=== PATIENT | female | born 1990 | race Two or more races ===

== ENCOUNTER 2024-08-15 13:31 | Emergency (ER) | payer MEDICAID, SELFPAY ==
[2024-08-15 13:50] VITALS: BP 125/86; PULSE 88; RESP 18; TEMP 36.6; O2SAT 99; BMI 25.9
--- NOTE | 2024-08-15 14:03 | EDNOTE_ITS ---
Upper Extremity Injury RME/HPI General Chief Complaint: Hand/Wrist Problems Stated Complaint: INJURY TO RIGHT HAND, LACERATION Time Seen by Provider: 08/15/24 13:53 Arrival date/time: 08/15/24 13:31 RME / HPI RME / HPI narrative: 33-year-old female patient with no significant medical history, came in for evaluation regarding right hand injury, injury sustained about few minutes prior to ER visit, while opening a can resulting into 3 cm gaping laceration, severity mild. Able to bend and extend the fingers without any difficulty. Denies any anesthesia or hypoesthesia distal to the laceration. Related Data Allergies Allergy/AdvReac Type Severity Reaction Status Date / Time No Known Allergies Allergy Verified 08/15/24 13:34 Review of Systems Review of Systems Narrative Review of Systems: Review of system reviewed and within normal limits except mentioned in HPI ED Exam Narrative Physical exam: VITAL SIGNS: Reviewed. GENERAL APPEARANCE: Alert and interactive, follows commands, no acute distress, HEAD AND FACE: Non-traumatic. ENT: PERRL, pink conjunctivitis, eyelid no trauma, Mucous membrane moist. RECTAL: Deferred. GENITAL: Deferred. NEUROLOGICAL: Gross motor function intact sensory function intact, Appropriate for age. MUSCULOSKELETAL: low back nontender, full range of motion. EXTREMITIES: 3 cm gaping laceration to the right hand palmar aspect full range of motion of the fingers and wrist no hypoesthesia or anesthesia distal to the laceration. SKIN: Color pink, dry, no rash, no lacerations, no abrasions, no contusions. LYMPHATICS: Deferred. Course Quality Measures none Orders Category Date Time Status Ibuprofen Tab [Motrin Tab] Med 08/15/24 14:01 Discontinued 600 mg PO X1 ONE Tet,Diphth,Pertuss(Acell)-Tdap [Boostrix Vacc] Med 08/15/24 14:01 Discontinued 0.5 ml IMI .ONCE ONE Vital Signs Vital signs: Vital Signs Temperature 98 F 08/15/24 13:50 Pulse Rate 88 08/15/24 13:50 Respiratory Rate 18 08/15/24 13:50 Blood Pressure 125/86 H 08/15/24 13:50 Pulse Oximetry (%) 99 08/15/24 13:50 Oxygen Delivery Method Room Air 08/15/24 13:50 Extremity Injury MDM Narrative [facility] Narrative:: Wound cleansed with skin cleanser, bina applied x 2 without any difficulty. Patient is tolerating the procedure well. Sterile dressing applied patient received Boostrix in the ED. Patient data External records reviewed:: None Clinical information provided by:: patient Social determinants that could affect healthcare access:: none Patient has the following chronic illnesses:: None How is presenting disease/condition affected by chronic disease/condition?: no chronic disease Evaluation data The following diagnostics were reviewed and interpreted by me:: other (specify) (None) Lab and/or radiology exams considered but not ordered:: None Interpretation Summary: None Medications / Prescriptions Medications or Prescriptions considered but not ordered:: Head laceration, avulsion, contusion Medication administrations:: Medication Administration History Discontinued Medications Diphtheria/Tetanus/Acell Pertussis (Diphth,Pertuss(Acell),Tet Vac 0.5 Ml Vial) 0.5 ml IMi .ONCE ONE Stop: 08/15/24 14:02 Ibuprofen (Ibuprofen Tab 600 Mg Tablet) 600 mg PO X1 ONE Stop: 08/15/24 14:02 Boostrix and Motrin Consultations Consultation(s) initiated? (list below): No Diagnosis Upper Extremity Injury Differential Diagnosis: other (Hand laceration, avulsion, contusion) Most likely diagnosis given after review of the tests above:: right tongue laceration Admission Indicated Admission indicated?: not indicated Explain why admission is indicated or not indicated:: Stable Admission Request Was there a request for admission?: No Disposition Plan Disposition Plan: Discharge Discharge Attestation Discharge Attestation: The patient was given an opportunity to ask questions and understood the discharge instructions. Discharge instructions specifically effects, indications for sooner follow up or return to the emergency department, and the expected course of current diagnosis. Patient condition: Stable Discharge Plan Plan Patient Disposition: HOME (Self Care) Disposition Comment: Stable Problem List Clinical Impression: Hand laceration Patient/Caregiver Discharge Instructions Discharge Activity: activity as tolerated Education Materials: ED Laceration, Hand: All Closures Additional Instructions: Thank you for the opportunity for serving you today. You are stable for discharged . You are advised to: Follow-up with your PCP in 1 to 2 days Return to ED for worsening of symptoms Increase oral fluids Daily dressing with Neosporin as needed For removal of bina in 7 days You may take [id number] Tylenol Motrin as needed for pain Print Language: Czech Stand Alone Forms: Marleen Award Info., Patient Portal Info Letter PA/FREIGHT BROKER Supervising Physician PA/FREIGHT BROKER Supervising Physician: MD Kimmie
[2024-08-15] MEDS: DIPHTH,PERTUSS(ACELL),TET VAC 0.5 ML VIAL IMi (14:07)
[2024-08-15] MEDS: IBUPROFEN TAB 600 MG TABLET PO (14:08)
== END 2024-08-15 15:00 | disposition home or self-care (01) ==
PROVIDERS: Emergency Provider Emergency Medicine
DX: S61.411A Laceration without foreign body of right hand, initial encounter (principal); W26.8XXA Contact with other sharp object(s), not elsewhere classified, initial encounter; Z23 Encounter for immunization
CPT/HCPCS: 12002; 90471; 90715; 99283; A9270

== ENCOUNTER 2024-09-12 14:10 | Emergency (ER) | payer MEDICAID, SELFPAY ==
[2024-09-12 14:11] VITALS: BMI 28.1
[2024-09-12 14:22] VITALS: BP 134/88; PULSE 68; RESP 18; TEMP 37; O2SAT 97
--- NOTE | 2024-09-12 14:30 | XR_ITS ---
Examination: CT abdomen and pelvis without contrast. Coronal 3-D reconstructions. Sagittal 2-D reconstructions. Date and time of exam:September 12, 2024 1610 hrs. Indications: Onset right abdominal pain beginning 2 weeks ago. CTDI: vol (mGy): 7.24 DLP: (mGycm): 701 Technique: Axial images of the abdomen have been obtained, 3 mm slice thickness Intravenous contrast material has not been administered. Low dose protocols were performed. One or more of the following dose reduction techniques were used; automated exposure control, adjustment of the mA and/or KV according to patient size, use of iterative reconstruction technique. Findings: No focal liver or splenic lesions Contracted gallbladder. No pancreatic mass. Aorta normal size. No renal calculi, no hydronephrosis. Normal appendix. 5 mm umbilical hernia containing fat. No bowel obstruction. Retroverted uterus with no uterine or adnexal mass Urinary bladder wall thickening up to 6 mm The osseous structures are intact Impression: Normal appendix Mild cystitis pattern.
[2024-09-12 15:20] LABS: Collection Type, Urine Clean Catch
[2024-09-12 15:25] LABS: Basophils % (Auto) 1 % (0-2.5); Eosinophils # (Auto) 0.1 Thou/mm3 (0.0-0.5); Eosinophils % (Auto) 1 % (0-10); Hematocrit 42.6 % (36.0-46.0); Hemoglobin 14.2 g/dL (12.0-16.0); Immature Granulocytes % (Auto) 0 % (0-0); Immature Granulocytes Auto 0.01 Thou/mm3 (0.00-0.00); Lymphocytes % (Auto) 37 % (10-50); Mean Corpuscular HGB Conc 33.3 g/dl (31.0-37.0); Mean Corpuscular Hemoglobin 28.6 pg (25.0-35.0); Mean Corpuscular Volume 86 fL (80-100); Monocytes # (Auto) 0.6 Thou/mm3 (0.0-0.8); Monocytes % (Auto) 7 % (0-12); Neutrophils # (Auto) 4.4 Thou/mm3 (1.8-7.7); Neutrophils % (Auto) 54 % (37-80); Nucleated Red Blood Cell % 0 /100 WBC (0); Platelet Count 372 Thou/mm3 (140-440); Red Blood Count 4.96 Miln/mm3 (4.00-5.20)
[2024-09-12 15:28] LABS: Bacteria,Urine Rare; Bilirubin,Urine Negative (Negative); Blood,Urine Negative (Negative); Clarity,Urine Clear (Clear/Hazy); Color,Urine Lt-Yellow (Lt Yel-Yel); Culture Indicated,Urine Not Indicated; Glucose, Urine Negative (Negative); Ketones,Urine Negative (Negative); Leukocyte Esterase,Urine Negative (Negative); Nitrite,Urine Negative (Negative); PH,Urine 6.5 (5.0-7.0); Protein,Urine Negative (Neg - Trace); RBC,Urine 1 /hpf (0-3); Specific Gravity,Urine 1.014 (1.001-1.035); Squamous Epithelial Cell,Urine 5 /hpf (0-5); Urobilinogen,Urine Negative mg/dL (0.0-1.0); WBC,Urine 1 /hpf (0-5)
[2024-09-12 15:38] LABS: HCG Qualitative,Urine Negative
[2024-09-12 15:46] LABS: Alanine Aminotransferase 21 U/L (10-49); Albumin, Serum 5.2 gm/dL (3.5-5.0); Albumin/Globulin Ratio 1.8 (1.2-2.2); Alkaline Phosphatase 98 U/L (46-116); Anion Gap 8 (7-16); Aspartate Amino Transferase 19 U/L (0-34); BUN/Creatinine Ratio 19 Ratio (12-20); Bilirubin,Total 0.5 mg/dL (0.3-1.2); Blood Urea Nitrogen 13 mg/dL (9-23); Calcium 9.6 mg/dL (8.3-10.6); Calcium (Corrected) 9.6 mg/dL (8.5-10.1); Carbon Dioxide 26.6 mMol/L (20.0-31.0); Chloride 104 mMol/L (98-107); Creatinine (Component) 0.7 mg/dL (0.6-1.3); Estimated Creatinine Clearance 110.8 mL/min (>60); Globulin 2.9 gm/dL (2.3-3.5); Glucose 93 mg/dL (74-106); Lipase 41 U/L (12-53); Osmolality,Calculated 277 (275-295); Potassium 4.4 mMol/L (3.4-5.1); Sodium 139 mMol/L (136-145); Total Protein 8.1 gm/dL (5.7-8.2); eGFR > 60 See Note
[2024-09-12 16:49] VITALS: BP 127/76; PULSE 83; RESP 18; TEMP 37.2; O2SAT 100
--- NOTE | 2024-09-12 17:28 | EDNOTE_ITS ---
<Statement entered by Paz Keen MD - 09/13/24 09:15> As co-signing physician, I was present and available for consult prn. I concur with the plan and care as documented by the midlevel provider. ED Abdominal Pain RME/HPI General Chief Complaint: Abdominal Pain Stated complaint: RIGHT SIDED ABDOMINAL PAIN Time seen by provider: 09/12/24 14:31 Arrival date/time: 09/12/24 14:10 34-year-old female presents to the emergency department complains of generalized lower abdominal pain ongoing x 1 year worse for the last few days Limitations: no limitations Related Data Allergies Allergy/AdvReac Type Severity Reaction Status Date / Time No Known Allergies Allergy Verified 09/12/24 14:19 Review of Systems Review of Systems Systems Reviewed: All systems reviewed, normal except as documented Constitutional Constitutional: Reports system reviewed and no additional complaints, except as documented, Denies fever(s) and Denies headache(s) Eyes Eyes: Reports system reviewed and no additional complaints, except as documented and Denies blurry vision ENT Ears, Nose, Mouth, and Throat: Reports system reviewed and no additional complaints, except as documented, Denies headache(s), Denies nasal congestion and Denies nasal discharge Cardiovascular Cardiovascular: Reports system reviewed and no additional complaints, except as documented, Denies chest pain and Denies dyspnea Respiratory Respiratory: Reports system reviewed and no additional complaints, except as d ocumented, Denies chest congestion, Denies cough and Denies dyspnea Gastrointestinal Gastrointestinal: Reports system reviewed and no additional complaints, except as documented, Reports abdominal pain, Denies loose stools, Denies nausea and Denies vomiting Integumentary/Breasts Skin/Breast: Reports system reviewed and no additional complaints, except as documented and Denies rash Neurologic Neurologic: Reports system reviewed and no additional complaints, except as documented, Reports as per HPI and Denies headache(s) Past Medical History Past Medical History OTHER HISTORY: Negative Blood Transfusions Social History SMOKING STATUS: Never smoker ED Exam General Limitations: Present no limitations General appearance: Present alert and in no apparent distress Head Head exam: Present atraumatic, normocephalic and normal inspection Eye Eye exam: Present normal appearance, PERRL and EOMI; Absent conjunctival injection ENT ENT exam: Present normal exam, normal oropharynx and mucous membranes moist Neck Neck exam: Present normal inspection, full ROM and trachea midline Chest Chest inspection: Present normal inspection and symmetric chest wall rise Respiratory Respiratory exam: Present normal lung sounds bilaterally; Absent respiratory distress Cardiovascular Cardiovascular exam: Present regular rate, normal rhythm and normal heart sounds Abdominal Exam Abdominal exam: Present soft, tenderness and normal bowel sounds; Absent distention, guarding, rebound or rigidity Abdominal tenderness: Present RLQ and mild; Absent RUQ, LUQ, LLQ or epigastrium Extremities Exam Extremities exam: Present normal inspection and full ROM Back Exam Back exam: Present normal inspection and full ROM Neurological Exam Neurological exam: Present alert, oriented X3 and CN II-XII intact Psychiatric Psychiatric exam: Present normal affect and normal mood Skin Skin exam: Present warm, dry, intact and normal color Course Quality Measures none Orders Category Date Time Status CT abdomen pelvis wo con Stat Exams 09/12/24 14:30 Completed CBC Stat Lab 09/12/24 14:42 Completed Comprehensive Metabolic Panel Stat Lab 09/12/24 14:42 Completed HCG Qualitative,Urine Stat Lab 09/12/24 14:55 Completed Lipase Stat Lab 09/12/24 14:42 Completed UA, C/S IF [Urinalysis, C/S if Indicated] Stat Lab 09/12/24 14:55 Completed Vital Signs Vital signs: Vital Signs Temperature 98.6 F 09/12/24 14:22 Pulse Rate 68 09/12/24 14:22 Respiratory Rate 18 09/12/24 14:22 Blood Pressure 134/88 H 09/12/24 14:22 Pulse Oximetry (%) 97 09/12/24 14:22 Oxygen Delivery Method Room Air 09/12/24 14:22 O2 saturation 97% room air within normal limits Abdominal Pain MDM MDM Narrative MDM Narrative:: 34-year-old female presents to the emergency department complains of generalized lower abdominal pain ongoing x 1 year worse for the last few days On exam patient well-appearing patient does not appear ill or toxic patient has soft abdomen patient reports mild right lower sided pain Lab work as well as CT scan obtained no acute emergent findings noted Patient discharged home in no distress to follow-up with primary care doctor in the next 24 to 48 hours and for any worsening symptoms to return to the ER immediately Patient data External records reviewed:: [facility] previous records Clinical information provided by:: patient Social determinants that could affect healthcare access:: none Patient has the following chronic illnesses:: None How is presenting disease/condition affected by chronic disease/condition?: no chronic disease Evaluation data The following diagnostics were reviewed and interpreted by me:: lab results and radiology exam(s) Lab and/or radiology exams considered but not ordered:: Labs radiology obtained Interpretation Summary: Reviewed by me Medications / Prescriptions Medications or Prescriptions considered but not ordered:: Given no meds Medication administrations:: Given no meds Consultations Consultation(s) initiated? (list below): No Diagnosis Differential diagnosis abdominal pain: abdominal pain, acute appendicitis, gastroenteritis and pancreatitis Most likely diagnosis given after review of the tests above:: Abdominal pain pain Admission Indicated Admission indicated?: not indicated Admission Request Was there a request for admission?: No Disposition Plan Disposition Plan: Discharge Discharge Attestation Discharge Attestation: The patient and all family members were given an opportunity to ask questions and understood the discharge instructions. Discharge instructions specifically effects, indications for sooner follow up or return to the emergency department, and the expected course of current diagnosis. Patient condition: Stable Discharge Plan Plan Patient Disposition: HOME (Self Care) Disposition Comment: Stable Prescriptions/Referrals Referrals: Jayda Khalil FNP [Primary Care Provider] - In 1 week Problem List Clinical Impression: Abdominal pain Patient/Caregiver Discharge Instructions Education Materials: Abdominal Pain Additional Instructions: Please follow up with your primary care doctor in the next 24-48hrs for any worsening symptoms return here immediately You do have a small umbilical hernia 5 mm I do not believe is the cause of your pain I do believe this is an incidental finding Print Language: Kyrgyz Stand Alone Forms: Marleen Award Info., Patient Portal Info Letter MARVIN/JESSICA Supervising Physician MARVIN/JESSICA Supervising Physician: Dr. Keen
== END 2024-09-12 18:15 | disposition home or self-care (01) ==
PROVIDERS: Nurse Practitioner Primary Care; Emergency Provider Emergency Medicine; PCP Registered Nurse General Practice
DX: R10.30 Lower abdominal pain, unspecified (principal)
CPT/HCPCS: 36415; 74176; 80053; 81001; 81025; 83690; 85025; 99284

== ENCOUNTER 2025-04-16 09:31 | Emergency (ER) | payer MEDICAID, SELFPAY ==
[2025-04-16 09:31] VITALS: BMI 29.2
--- NOTE | 2025-04-16 09:35 | XR_ITS ---
Examination: Knee, right , 3 views Technique: Knee AP, lateral, oblique 3 views Date and time of exam: April 16, 2025 1005 hours INDICATIONS: Severe right knee pain beginning 3 days ago. FINDINGS: Mild osteopenia. No fracture or dislocation. Small knee effusion. No significant joint narrowing IMPRESSION: Small knee effusion
[2025-04-16 10:19] VITALS: BP 135/68; PULSE 69; RESP 16; TEMP 36.8; O2SAT 98
--- NOTE | 2025-04-16 10:45 | PD.EDLOWEX ---
Lower Extremity Injury RME/HPI General Chief Complaint: Extremity Injury, Lower Stated Complaint: RT KNEE PAIN Time Seen by Provider: 04/16/25 09:34 Arrival date/time: 04/16/25 09:31 34yr old female with prior knee injury 3 years ago presents with concerns for right knee pain x 3 days after twisting her right knee. Patient reports no direct trauma or fall Limitations: no limitations Related Data Previous Rx's ?Medication ?Instructions ?Recorded ibuprofen 800 mg tablet 800 mg PO TID PRN pain #30 tabs 04/16/25 Allergies Allergy/AdvReac Type Severity Reaction Status Date / Time No Known Allergies Allergy Verified 04/16/25 09:33 Review of Systems Review of Systems Systems Reviewed: All systems reviewed, normal except as documented Constitutional Constitutional: Reports system reviewed and no additional complaints, except as documented, Denies fever(s) and Denies headache(s) Eyes Eyes: Reports system reviewed and no additional complaints, except as documented and Denies blurry vision ENT Ears, Nose, Mouth, and Throat: Reports system reviewed and no additional complaints, except as documented, Denies headache(s), Denies nasal congestion and Denies nasal discharge Cardiovascular Cardiovascular: Reports system reviewed and no additional complaints, except as documented, Denies chest pain and Denies dyspnea Respiratory Respiratory: Reports system reviewed and no additional complaints, except as documented, Denies chest congestion, Denies cough and Denies dyspnea Gastrointestinal Gastrointestinal: Reports system reviewed and no additional complaints, except as documented and Denies abdominal pain Musculoskeletal Musculoskeletal: Reports system reviewed and no additional complaints, except as documented, Reports abnormal gait, Reports arthralgias, Denies deformity, Denies numbness, Reports stiffness and Denies tingling Integumentary/Breasts Skin/Breast: Reports system reviewed and no additional complaints, except as documented and Denies rash Neurologic Neurologic: Reports system reviewed and no additional complaints, except as documented, Reports as per HPI, Reports abnormal gait, Denies headache(s), Denies numbness and Denies tingling Past Medical History Past Medical History OTHER HISTORY: Negative Blood Transfusions Social History SMOKING STATUS: Never smoker ED Exam General Limitations: Present no limitations General appearance: Present alert and in no apparent distress Head Head exam: Present atraumatic, normocephalic and normal inspection Eye Eye exam: Present normal appearance, PERRL and EOMI; Absent conjunctival injection ENT ENT exam: Present normal exam, normal oropharynx and mucous membranes moist Neck Neck exam: Present normal inspection, full ROM and trachea midline Chest Chest inspection: Present normal inspection and symmetric chest wall rise Respiratory Respiratory exam: Present normal lung sounds bilaterally; Absent respiratory distress Cardiovascular Cardiovascular exam: Present regular rate, normal rhythm and normal heart sounds Abdominal Exam Abdominal exam: Present soft and normal bowel sounds; Absent distention or tenderness Extremities Exam Extremities exam: Present normal inspection, full ROM, tenderness and normal capillary refill; Absent joint swelling Back Exam Back exam: Present normal inspection and full ROM Neurological Exam Neurological exam: Present alert, oriented X3, CN II-XII intact, normal gait and reflexes normal; Absent motor sensory deficit Psychiatric Psychiatric exam: Present normal affect and normal mood Skin Skin exam: Present warm, dry, intact and normal color Course Quality Measures none Orders Category Date Time Status Crutches .NOW Care 04/16/25 10:45 Active teddy wrap [Splint / Immobilizer] STAT Care 04/16/25 10:45 Active XR knee RT 3V Stat Exams 04/16/25 09:35 Completed Ketorolac Inj [Toradol Inj] Med 04/16/25 10:29 Discontinued 30 mg IM X1 ONE Vital Signs Vital signs: Vital Signs Temperature 98.2 F 04/16/25 10:19 Pulse Rate 69 04/16/25 10:19 Respiratory Rate 16 04/16/25 10:19 Blood Pressure 135/68 H 04/16/25 10:19 Pulse Oximetry (%) 98 04/16/25 10:19 Oxygen Delivery Method Room Air 04/16/25 10:19 O2 saturation 98% on room air within the limits Extremity Injury, Lower MDM Narrative MDM Narrative:: 34yr old female with prior knee injury 3 years ago presents with concerns for right knee pain x 3 days after twisting her right knee. Patient reports no direct trauma or fall On exam patient has tenderness of the right knee patient reports pain worse with movement X-ray of the right knee obtained no acute fracture or dislocation noted Patient has small knee effusion Patient placed in an Teddy wrap and offered crutches Patient is offered pain medication but declined Explained to the patient she needs an outpatient MRI for further evaluation of right knee pain Patient discharged home in no distress to follow-up with primary care doctor in the next 24 to 48 hours and for any worsening symptoms to return to the ER immediately Patient data External records reviewed:: [facility] previous records Clinical information provided by:: patient Social determinants that could affect healthcare access:: none Patient has the following chronic illnesses:: None How is presenting disease/condition affected by chronic disease/condition?: no chronic disease Evaluation data The following diagnostics were reviewed and interpreted by me:: radiology exam(s) Lab and/or radiology exams considered but not ordered:: Radiology obtained Interpretation Summary: Reviewed by me Medications / Prescriptions Medications or Prescriptions considered but not ordered:: Given Medication administrations:: Medication Administration History Discontinued Medications Ketorolac Tromethamine (Ketorolac Inj 30 Mg/Ml Vial) 30 mg IM X1 ONE Stop: 04/16/25 10:30 Last Admin: 04/16/25 10:40 Dose: Not Given Documented By: ADELIA Non-Admin Reason: Patient Refused Given Consultations Consultation(s) initiated? (list below): No Diagnosis Extremity Injury, Lower Differential Diagnosis: acute internal derangement of knee and other Most likely diagnosis given after review of the tests above:: Knee sprain Admission Indicated Admission indicated?: not indicated Admission Request Was there a request for admission?: No Disposition Plan Disposition Plan: Discharge Discharge Attestation Discharge Attestation: The patient and all family members were given an opportunity to ask questions and understood the discharge instructions. Discharge instructions specifically effects, indications for sooner follow up or return to the emergency department, and the expected course of current diagnosis. Patient condition: Stable Discharge Plan Plan Patient Disposition: HOME (Self Care) Discharge Disposition comment: Stable Prescriptions/Referrals Prescriptions/Med Rec: New ibuprofen 800 mg tablet 800 mg PO TID PRN (Reason: pain) Qty: 30 0RF Problem List Clinical Impression: Effusion of right knee Patient/Caregiver Discharge Instructions Education Materials: ED Knee Effusion Additional Instructions: Please follow up with your primary care doctor in the next 24-48hrs for any worsening symptoms return here immediately Please your doctor request outpatient MRI for worsening symptoms return immediately Print Language: Norwegian Stand Alone Forms: Marleen Award Info., Work/School Release, Patient Portal Info Letter MARVIN/JESSICA Supervising Physician MARVIN/JESSICA Supervising Physician: Dr. boateng
== END 2025-04-16 11:33 | disposition home or self-care (01) ==
LOC: SERX 10:47
PROVIDERS: Emergency Provider Emergency Medicine; PCP Family Medicine
DX: M25.461 Effusion, right knee (principal)
CPT/HCPCS: 73562; 99283